=== PATIENT | male | born 1990 | race Caucasian/White ===

== ENCOUNTER 2017-08-09 11:59 | Emergency (ER) | payer BC ==
[~2017-08-09] VITALS: Ht 185.4 cm; Wt 105.4 kg
[2017-08-09 13:07] LABS: APPEARANCE SL.HAZY ((CLEAR)); BILIRUBIN NEGATIVE; BLOOD NEGATIVE; COLOR YELLOW ((YELLOW)); GLUCOSE (STRIP) NEGATIVE; KETONES NEGATIVE; LEUKOCYTES NEGATIVE; NITRITE NEGATIVE; PROTEIN (STRIP) 100; SPECIFIC GRAVITY 1.026 (1.000-1.030); UROBILINOGEN 0.2 MG/DL (0.2-1.0)
[2017-08-09 13:12] LABS: BACTERIA NONE SEEN /HPF; EPITHELIAL CELLS NONE SEEN /HPF; MUCUS TRACE /LPF; RED BLOOD CELLS 0-5 /HPF (0-5); UCUL ADDED? NO; WHITE BLOOD CELLS 0-5 /HPF (0-5)
[2017-08-09 13:18] LABS: HEMATOCRIT 45.8 % (38.0-50.0); HEMOGLOBIN 15.9 G/DL (12.5-16.6); MCH 30.9 PG (29.0-34.0); MCHC 34.7 G/DL (30.0-36.0); MCV 88.9 FL (86-99); PLATELET COUNT 212 K/uL (156-360); RBC DIS.WIDTH-CV 12.8 % (11.8-14.6); RED BLOOD COUNT 5.15 M/uL (4.00-5.50); WHITE BLOOD COUNT 12.7 K/uL (4.1-10.2)
[2017-08-09 13:26] LABS: ALBUMIN 4.5 g/dL (3.2-4.8); CHLORIDE 106 mEq/L (99-109); POTASSIUM 4.5 mEq/L (3.7-5.4); SODIUM 142 mEq/L (136-147)
[2017-08-09 13:29] LABS: GLUCOSE 105 mg/dL (70-99); TOTAL PROTEIN 7.1 g/dL (6.4-8.3)
[2017-08-09 13:31] LABS: TOTAL BILIRUBIN 0.9 mg/dL (0.0-1.0)
[2017-08-09 13:32] LABS: ALKALINE PHOSPHATASE 54 IU/L (3-129); CREATININE 0.9 mg/dL (0.6-1.3); GFR ESTIMATE (CALCULATED) > 59 mL/min/ (58.99-99999)
[2017-08-09 13:33] LABS: UREA NITROGEN (BUN) 18 mg/dL (9-23)
[2017-08-09 13:34] LABS: AST (GOT) 18 IU/L (2-34)
[2017-08-09 13:35] LABS: ALT (GPT) 19 IU/L (3-49)
[2017-08-09 13:37] LABS: LIPASE 133 U/L (1.0-51.0)
[2017-08-09] MEDS ORDERED: LEVSIN-SL0.125 MG SL (15:57)
[2017-08-09] MEDS ORDERED: ZOFRAN ODT4 MG PO (15:57)
[2017-08-09 16:05] VITALS: BP 118/69
== END 2017-08-09 16:10 | disposition home or self-care (01) ==
LOC: EME 11:59
DX: K52.9 Noninfective gastroenteritis and colitis, unspecified (principal); R74.8 Abnormal levels of other serum enzymes; Z72.89 Other problems related to lifestyle; J45.909 Unspecified asthma, uncomplicated
CPT/HCPCS: 74177; 80053; 81003; 83690; 85027; 87502; 99281; 99284; J1885; J2405; J7030